=== PATIENT | female | born 1960 | race Caucasian/White ===

== ENCOUNTER 2017-07-14 12:44 | Outpatient (CLI) | payer BC ==
[~2017-07-14 12:44] MED LIST: Iopamidol 370 76% 100 ML VIAL ONE
--- NOTE | 2017-07-14 15:07 | CT ---
CT ANGIOGRAM OF HEAD WITH AND WITHOUT CONTRAST: CTA) DATE: 07/14/17. HISTORY: A 57-year-old female with R51, exertional headache. TECHNIQUE: Standard noncontrast brain CT performed. IV injection of Isovue 370. Arterial bolus chasing technique scan performed from upper C3 to vertex of head. Coronal and sagittal 3D MIP reconstructions. FINDINGS: The ventricles are normal in size and configuration. Calvarium is intact. The frontal, ethmoid, and sphenoid sinuses, upper halves of the bilateral maxillary sinuses, and the bilateral tympanomastoid cavities, are grossly clear. There is an enlarged right posterior clinoid process. The prepontine c istern is atypically large, apparently associated with a chronic-appearing scalloping, shallow defect of the posterior superior surface of the clivus. The upper cervical portions of the bilateral inter nal carotid arteries, at the C2 and C3 levels, are very tortuous, taking hairpin turns, without high- grade stenoses there. There is no calcified plaque or stenosis involving the bilateral carotid sipho ns, anterior and middle cerebral arteries, bilateral vertebral arteries, basilar artery, posterior ce rebral arteries, superior cerebellar arteries, bilateral AICA's, and bilateral PICA's. There are jamie ateral posterior communicating arteries. It is uncertain whether or not there is an anterior communi cating artery. No aneurysm is identified. There is demonstration of blood flow in the bilateral jugular bulbs, sigmoid sinuses, transverse sinu ses, torcular herophili, vein of Ti, internal cerebral veins, straight sinus, and superior sagitta l sinus. There is no blood flow demonstrated in the inferior sagittal sinus. Ventricles are normal in size and configuration. No mass effect or midline shift. No evidence of mo derate size or large cortical infarction. No acute intraaxial or extraaxial hemorrhage. IMPRESSION: 1. 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 2. Normal [place]. 3. Widening of prepontine cistern and scalloping of posterior surface of upper clivus. This may be an anatomical variant. However, this raises the possibility of a prepontine cystic lesion, such as a n arachnoid cyst. Recommend MRI brain with and without contrast (please specify cranial nerve protoc ol). 4. Incidental finding of very tortuous distal cervical internal carotid arteries, with hairpin turns . POS: [facility]
--- NOTE | 2017-07-14 19:49 | MRI ---
BRAIN MRI WITHOUT CONTRAST: 07/14/2017 HISTORY: Headaches at the base of the skull. COMPARISON: None. TECHNIQUE: Multiplanar, multisequence MR imaging of the brain obtained without contrast. FINDINGS: The diffusion weighted imaging demonstrates no evidence for acute infarction. The axial gradient echo imaging demonstrates no evidence for intracranial hemorrhage. No midline shift, mass effect, or ventricular enlargement noted. Arterial flow voids at the axial level of the skull base appear grossly unremarkable on the T2 weight ed imaging. The imaged paranasal sinuses/mastoid air cells appear grossly unremarkable. Regional bone marrow signal intensity appears within normal limits. IMPRESSION: No acute findings. POS: [facility]
--- NOTE | 2017-07-14 20:28 | MRI ---
CERVICAL SPINE MRI: 07/14/2017 HISTORY: Persistent headache. COMPARISON: 04/06/2013 TECHNIQUE: Multiplanar, multisequence MR imaging of the cervical spine obtained without contrast. FINDINGS: Sagittal STIR imaging demonstrates no focal area of osseous marrow edema. There is no anterolisthesis or retrolisthesis noted within the cervical spine. There is mild degenerative change at the atlantoaxial interspace. The craniocervical junction appear s intact. C2-C3: No central canal or neural foraminal stenosis. C3-C4: Prominent facet and uncovertebral osteophyte formation noted on the right. There is severe r ight neural foraminal stenosis. No significant central canal or left neural foraminal stenosis. C4-C5: Disk space narrowing, disk desiccation, and mild disk bulge, with partial effacement of the v entral thecal sac. No significant central canal stenosis. Mild anterior osteophyte formation. There is facet and uncovertebral osteophyte formation on the left with mild left neural foraminal ranjana nosis. C5-C6: There is disk space narrowing, disk desiccation, anterior osteophyte formation, and disk bulg e. There is no associated central canal stenosis. There is bilateral facet and uncovertebral osteop hyte formation, left greater than right, with moderate left and mild right neural foraminal stenosis. C6-C7: Disk space narrowing, disk desiccation, anterior osteophyte formation, and disk bulge. Parti al effacement of the ventral thecal sac with no significant central canal stenosis. Facet and uncove rtebral osteophyte formation noted, right greater than left, with moderate right and mild left neural foraminal stenosis. C7-T1: No central canal or neural foraminal stenosis. There is no focal area of abnormal signal intensity identified within the cervical cord. 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 No significant central canal stenosis. Sc attered areas of neural foraminal stenosis noted. No focal area of abnormal signal intensity identif ied within the cervical cord. POS: [facility]
== END 2017-07-14 12:45 | disposition home or self-care (01) ==
LOC: SCSMRI 12:44
PROVIDERS: ATTEND Psychiatry & Neurology Neurology
DX: M47.892 Other spondylosis, cervical region (principal); R51 Headache; M99.81 Other biomechanical lesions of cervical region
CPT/HCPCS: 70496; 70551; 72141

== ENCOUNTER 2020-08-07 10:53 | Outpatient (CLI) | payer OTHER | END 2020-08-07 10:54 | disposition home or self-care (01) | LOC: BICMRI 10:53 | PROVIDERS: ATTEND Orthopaedic Surgery | DX: S83.242A Other tear of medial meniscus, current injury, left knee, initial encounter (principal); S83.522A Sprain of posterior cruciate ligament of left knee, initial encounter; M71.22 Synovial cyst of popliteal space [Baker], left knee; M22.2X2 Patellofemoral disorders, left knee ==

== ENCOUNTER 2021-08-19 15:55 | Emergency (ER) | payer OTHER ==
[2021-08-19 16:46] LABS: #Basophils 0.1 thou/uL (0.0-0.2); #Eosinphils 0.1 thou/uL (0.0-0.7); #Lymphocytes 1.6 thou/uL (1.20-3.40); #Monocytes 0.5 thou/uL (0.11-0.59); #Neutrophils 4.5 thou/uL (1.40-6.50); %Basophils 1.3 % (0.0-1.0); %Eosinophils 1.6 % (0.0-10.0); %Lymphocytes 23.7 % (21.0-51.0); %Monocytes 7.8 % (0.0-10.0); %Neutrophils 65.6 % (42.0-75.0); Hemoglobin 15.7 g/dL (12.0-16.0); Mean Corpuscular HGB CONC 33.5 g/dL (32.0-36.0); Mean Corpuscular Hemoglobin 33.6 pg (27.0-31.0); Mean Platelet Volume 6.7 fL (7.4-10.4); Platelet Count 238 thou/uL (130-400); RBC Distribution Width 11.7 % (11.5-14.5); Red Blood Cell (RBC) Count 4.68 mill/uL (4.20-5.40); White Blood Cell (WBC) Count 6.8 thou/uL (4.8-10.8)
[2021-08-19 17:10] LABS: ALT (SGPT) 12 U/L (8-55); AST (SGOT) 18 U/L (5-34); Albumin 4.2 g/dL (3.4-4.8); Alkaline Phosphatase 53 U/L (40-110); Anion Gap 17 mmol/L (10-20); BUN (Urea Nitrogen) 17 mg/dL (9.8-20.1); Bilirubin, Total 0.6 mg/dL (0.2-1.2); Calc. Creatinine Clearance 0 mL/min (70-130); Calcium 9.2 mg/dL (7.8-10.44); Carbon Dioxide 27 mmol/L (23-31); Chloride 101 mmol/L (98-107); Globulin 3.1 g/dL (2.4-3.5); Glucose 80 mg/dL (80-115); Lipase 12 U/L (8-78); Potassium 4.6 mmol/L (3.5-5.1); Protein, Total 7.3 g/dL (5.8-8.1); Sodium 140 mmol/L (136-145)
[2021-08-19] MEDS ORDERED: Lidocaine Viscous Sol 2% 15 ml UD Cup ONE (17:39)
[2021-08-19] MEDS ORDERED: Mag-Al 1200 mg/1200 mg/30 ML UDCUP ONE (17:39)
[2021-08-19] MEDS ORDERED: Famotidine/PF 20 mg/2ml Vial ONE (17:39)
[2021-08-19 18:36] LABS: Bilirubin Negative (Negative); Blood, Urine Negative (Negative); Clarity Clear (Clear); Glucose, Urine (Dipstick) Normal (Negative); Ketone, Urine 20 mg/dL (Negative); Leukocyte Negative Leu/uL (Negative); Nitrite Negative (Negative); Protein, Urine (Dipstick) Negative (Neg-Trace); Specific Gravity, Urine 1.006 (1.002-1.036); Urobilinogen Normal mg/dL (Less than 2)
[2021-08-19] MEDS ORDERED: Glycopyrrolate 0.2 MG/ML 5 ML SYRINGE SLOW IVP SCH (20:15)
== END 2021-08-19 20:34 | disposition home or self-care (01) ==
LOC: ERS 15:55
DX: K52.9 Noninfective gastroenteritis and colitis, unspecified (principal); K29.70 Gastritis, unspecified, without bleeding; Z79.899 Other long term (current) drug therapy
CPT/HCPCS: 36415; 74177; 80053; 81003; 83690; 85025; 96361; 96374; 96375; Q9967; S0028

== ENCOUNTER 2022-12-24 09:56 | Outpatient (CLI) | payer OTHER | END 2022-12-24 09:57 | disposition home or self-care (01) | LOC: BICMAMMO 09:56 | PROVIDERS: ATTEND Obstetrics & Gynecology | DX: Z12.31 Encounter for screening mammogram for malignant neoplasm of breast (principal) | CPT/HCPCS: 77063; 77067 ==

== ENCOUNTER 2024-02-05 14:57 | Outpatient (CLI) | payer OTHER | END 2024-02-05 14:58 | disposition home or self-care (01) | LOC: BICRAD 14:57 | PROVIDERS: ATTEND Internal Medicine | DX: M25.552 Pain in left hip (principal) ==

== ENCOUNTER 2024-02-24 09:24 | Outpatient (CLI) | payer OTHER | END 2024-02-24 09:25 | disposition home or self-care (01) | LOC: SCSMRI 09:24 | PROVIDERS: ATTEND Student in an Organized Health Care Education/Training Program | DX: S76.302A Unspecified injury of muscle, fascia and tendon of the posterior muscle group at thigh level, left thigh, initial encounter (principal); M70.62 Trochanteric bursitis, left hip; M77.8 Other enthesopathies, not elsewhere classified; R60.0 Localized edema; S73.192A Other sprain of left hip, initial encounter | CPT/HCPCS: 72195 ==